=== PATIENT | female | born 1940 | race Asian ===

== ENCOUNTER 2017-10-28 10:52 | Emergency (ER) | payer MEDICARE, OTHER ==
[~2017-10-28] VITALS: Ht 157.5 cm; Wt 52.0 kg
[~2017-10-28 10:52] MED LIST: ASPI-556 PO; CALC1TAB15 PO; FERR1TAB24 PO; GLYB5TAB8 PO; ROSI4TAB28 PO; SULF-168 PO
[2017-10-28] MEDS ORDERED: ATOR10TA84 PO (11:03)
[2017-10-28] MEDS ORDERED: SITA1TAB2 PO (11:03)
[2017-10-28 11:04] LABS: GLUCOSE,POINT OF CARE 371 MG/DL (70-110)
[2017-10-28 14:25] VITALS: BP 135/81
== END 2017-10-28 14:26 | disposition home or self-care (01) ==
LOC: EMS 10:53
DX: S92.315A Nondisplaced fracture of first metatarsal bone, left foot, initial encounter for closed fracture (principal); E11.9 Type 2 diabetes mellitus without complications; Z88.8 Allergy status to other drugs, medicaments and biological substances; Z79.82 Long term (current) use of aspirin; Z79.899 Other long term (current) drug therapy; E78.00 Pure hypercholesterolemia, unspecified; Z90.710 Acquired absence of both cervix and uterus; W20.8XXA Other cause of strike by thrown, projected or falling object, initial encounter; Y93.89 Activity, other specified; Y92.89 Other specified places as the place of occurrence of the external cause; Y99.8 Other external cause status
CPT/HCPCS: 29515; 99284

== ENCOUNTER 2020-11-12 11:37 | Emergency (ER) | payer MEDICARE, MEDICAID, OTHER ==
[~2020-11-12] VITALS: Ht 162.6 cm; Wt 51.0 kg
[~2020-11-12 11:37] MED LIST changes: +ATOR10TA84 PO; -GLYB5TAB8 PO; -ROSI4TAB28 PO; +SITA1TAB2 PO; -SULF-168 PO
[2020-11-12] MEDS ORDERED: INSLAN SQ (11:42)
[2020-11-12] MEDS ORDERED: ACETAMINOPHEN/CODEINE 300-30 MG TABLET PO ONE (12:30)
[2020-11-12 13:58] VITALS: BP 143/82
== END 2020-11-12 14:02 | disposition home or self-care (01) ==
LOC: EMS 11:39
DX: M54.31 Sciatica, right side (principal); M25.551 Pain in right hip; E11.9 Type 2 diabetes mellitus without complications; E78.00 Pure hypercholesterolemia, unspecified; Z88.8 Allergy status to other drugs, medicaments and biological substances; Z79.82 Long term (current) use of aspirin; Z79.4 Long term (current) use of insulin
CPT/HCPCS: 82962; 99283